=== PATIENT | male | born 1970 | race Caucasian/White ===

== ENCOUNTER 2023-05-27 05:18 | Inpatient (IN) | payer OTHER ==
[~2023-05-27] VITALS: Ht 162.6 cm; Wt 106.1 kg
[2023-05-27] MEDS ORDERED: BUPIVACAINE 0.5 % PF 150 MG/30 ML VIAL ONE (06:07)
[2023-05-27] MEDS ORDERED: POLYMYXIN B SULFATE 500,000 UNITS ONE (06:07)
[2023-05-27] MEDS ORDERED: ANESTHESIA TRAY IN PYXIS 1 EA TRAY MC ONE (06:07)
[2023-05-27] MEDS ORDERED: TRANEXAMIC ACID 3,000 MG in SODIUM CHLORIDE IRRIG SOLUTION 70 ML IR ONE (06:30)
[2023-05-27 07:29] VITALS: BP 141/107; TEMP 98.8; O2SAT 98
[2023-05-27 09:50] VITALS: BP 129/84; TEMP 98.2; O2SAT 99
[2023-05-27] MEDS ORDERED: MUPI22OI7 TP (10:42)
[2023-05-27 12:00] VITALS: BP 115/70; TEMP 98.8; O2SAT 98
[2023-05-27] MEDS: HYDROCODONE/APAP 5/325MG TABLET PO PRN ×3 (12:02→23:53)
[2023-05-27] MEDS ORDERED: COLACE 250 MG CAPSULE PO PRN (12:30)
[2023-05-27] MEDS ORDERED: DULCOLAX 10 MG/SUPP.RECT RC PRN (12:30)
[2023-05-27] MEDS ORDERED: AMBIEN 5 MG TABLET PO PRN (12:30)
[2023-05-27] MEDS ORDERED: TYLENOL 650 MG TABLET PO PRN (12:30)
[2023-05-27] MEDS ORDERED: SENOKOT 8.6 MG TABLET PO PRN (12:30)
[2023-05-27] MEDS ORDERED: ZOFRAN 4mg/2ML IV PRN (12:30)
[2023-05-27] MEDS ORDERED: MORPHINE SULFATE INJ 2 MG/ML DISP.SYRIN IM PRN (13:00)
[2023-05-27] MEDS ORDERED: MORPHINE SULFATE INJ 2 MG/ML DISP.SYRIN IV PRN (13:00)
[2023-05-27 16:00] VITALS: BP 158/91; TEMP 97.5; O2SAT 97
[2023-05-27] MEDS: MORPHINE SULFATE INJ 2 MG/ML DISP.SYRIN IV PRN ×2 (16:25→23:00)
[2023-05-27] MEDS: ANCEF 1 GM/50 ML D5W IV SCH ×2 (16:25)
[2023-05-27] MEDS: RIVAROXABAN 10 MG TABLET PO SCH (17:53)
[2023-05-27 20:00] VITALS: BP 128/82; TEMP 98.5; O2SAT 95
[2023-05-27] MEDS: IV D5/0.45 NACL 1,000 ML IV PRN (20:32)
[2023-05-28] MEDS: ANCEF 1 GM/50 ML D5W IV SCH ×2 (00:43)
[2023-05-28] MEDS: IV D5/0.45 NACL 1,000 ML IV PRN ×2 (04:49→20:09)
[2023-05-28] MEDS: MORPHINE SULFATE INJ 2 MG/ML DISP.SYRIN IV PRN ×2 (04:54→11:25)
[2023-05-28 05:49] LABS: HEMOGLOBIN 14.4 g/dL (13.5-17.5)
[2023-05-28] MEDS: HYDROCODONE/APAP 5/325MG TABLET PO PRN ×3 (06:31→20:05)
[2023-05-28 08:00] VITALS: BP 168/98; TEMP 97.7; O2SAT 95
[2023-05-28] MEDS: ASPIRIN 325 MG TABLET PO SCH (09:05)
[2023-05-28 16:00] VITALS: BP 155/99; TEMP 99.5; O2SAT 95
[2023-05-28] MEDS: RIVAROXABAN 10 MG TABLET PO SCH (17:20)
[2023-05-28 20:00] VITALS: BP 127/81; TEMP 100.2; O2SAT 96
[2023-05-29] MEDS: HYDROCODONE/APAP 5/325MG TABLET PO PRN ×4 (01:09→17:47)
[2023-05-29 08:00] VITALS: BP 120/80; TEMP 99.9; O2SAT 96
[2023-05-29] MEDS: ASPIRIN 325 MG TABLET PO SCH (08:16)
[2023-05-29 16:00] VITALS: BP 120/84; TEMP 100.4; O2SAT 98
[2023-05-29] MEDS: RIVAROXABAN 10 MG TABLET PO SCH (16:07)
[2023-05-29] MEDS: IV D5/0.45 NACL 1,000 ML IV PRN (17:40)
[2023-05-29 20:00] VITALS: BP 129/94; TEMP 97.3; O2SAT 95
[2023-05-29] MEDS: MORPHINE SULFATE INJ 2 MG/ML DISP.SYRIN IV PRN (20:00)
[2023-05-30] MEDS: IV D5/0.45 NACL 1,000 ML IV PRN (03:19)
[2023-05-30] MEDS: MORPHINE SULFATE INJ 2 MG/ML DISP.SYRIN IV PRN ×2 (03:27→09:52)
[2023-05-30 07:30] VITALS: BP 125/83; TEMP 98.8; O2SAT 95
[2023-05-30] MEDS: ASPIRIN 325 MG TABLET PO SCH (08:32)
[2023-05-30] MEDS ORDERED: ACET325T53 PO (11:33)
== END 2023-05-30 15:29 | disposition home health service (06) | DRG 326 ==
LOC: DS 05:18 → MED 05:24
PROVIDERS: ADMIT Specialist
PROC: 0SRD069 Replacement of Left Knee Joint with Oxidized Zirconium on Polyethylene Synthetic Substitute, Cemented, Open Approach (ICD-10-PCS; principal; 2023-05-27)
PROC: 0MNP0ZZ Release Left Knee Bursa and Ligament, Open Approach (ICD-10-PCS; 2023-05-27)
DX: M17.12 Unilateral primary osteoarthritis, left knee (principal); K76.0 Fatty (change of) liver, not elsewhere classified; E66.01 Morbid (severe) obesity due to excess calories; M22.02 Recurrent dislocation of patella, left knee; Z68.41 Body mass index [BMI] 40.0-44.9, adult; E78.5 Hyperlipidemia, unspecified; I10 Essential (primary) hypertension
CPT/HCPCS: 36415; 82962-TC; 85027-TC; 87081-TC; 97110-TC; 97112-TC; 97116-TC; 97530-TC; A4217; A4223; C1713; C1776; G0378; J0690; J1100; J2270; J3490; J7030; J7040; J7060; L1830